=== PATIENT | female | born 1990 | race Caucasian/White ===

== ENCOUNTER 2020-05-08 17:28 | Emergency (ER) | payer OTHER ==
[~2020-05-08] VITALS: Ht 167.6 cm; Wt 81.7 kg
[2020-05-08 17:32] VITALS: BP 140/104
[2020-05-08] MEDS ORDERED: CORTISPORIN OTI10 M2 OTIC (17:52)
[2020-05-08] MEDS ORDERED: NORCO 5-325 TA1 EAC2 PO (17:55)
== END 2020-05-08 18:05 | disposition home or self-care (01) ==
LOC: ER 17:28
DX: H60.92 Unspecified otitis externa, left ear (principal); Z88.0 Allergy status to penicillin

== ENCOUNTER 2021-08-05 12:05 | Emergency (ER) | payer OTHER ==
[~2021-08-05] VITALS: Ht 167.6 cm; Wt 82.6 kg
[~2021-08-05 12:05] MED LIST: CORTISPORIN OTI10 M2 OTIC; NORCO 5-325 TA1 EAC2 PO
[2021-08-05] MEDS ORDERED: FLEXERIL PO (14:02)
[2021-08-05 14:41] VITALS: BP 132/87
== END 2021-08-05 14:45 | disposition home or self-care (01) ==
LOC: ER 12:05
DX: S16.1XXA Strain of muscle, fascia and tendon at neck level, initial encounter (principal); Z88.0 Allergy status to penicillin; Z98.890 Other specified postprocedural states; Z88.2 Allergy status to sulfonamides; V89.2XXA Person injured in unspecified motor-vehicle accident, traffic, initial encounter; Y93.89 Activity, other specified; Y92.89 Other specified places as the place of occurrence of the external cause; Y99.8 Other external cause status